=== PATIENT | female | born 1965 | race Two or more races ===

== ENCOUNTER 2021-06-13 05:59 | Day surgery (SDC) | payer OTHER ==
[~2021-06-13] VITALS: Ht 160 cm; Wt 63.5 kg
[~2021-06-13 05:59] MED LIST: EFFEXOR XR150 MG
[2021-06-13] MEDS ORDERED: PERCOCET 5-3251 EACH PO (14:47)
== END 2021-06-13 18:01 | disposition home or self-care (01) ==
LOC: CIR.AMB 05:59
PROVIDERS: ATTEND Surgery
DX: K64.8 Other hemorrhoids (principal); Z20.822 Contact with and (suspected) exposure to COVID-19; Z88.2 Allergy status to sulfonamides; Z88.0 Allergy status to penicillin